=== PATIENT | male | born 1960 | race Caucasian/White ===

== ENCOUNTER 2023-02-08 11:26 | Day surgery (SDC) | payer OTHER ==
[~2023-02-08] VITALS: Ht 162.6 cm; Wt 79.8 kg
[2023-02-08] MEDS ORDERED: MIDAZOLAM 5 MG/5 ML VIAL ONE (12:56)
[2023-02-08] MEDS ORDERED: diphenhydrAMINE 50 MG/ML VIAL ONE (12:56)
[2023-02-08] MEDS ORDERED: fentaNYL citrate 0.05 MG/ML VIAL ONE (12:57)
[2023-02-08] MEDS ORDERED: LIDOCAINE 2% 100 MG/5 ML UJET TP ONE (12:57)
[2023-02-08] MEDS ORDERED: MIDAZOLAM 2 MG/2 ML VIAL IVP ONE (13:50)
[2023-02-08] MEDS ORDERED: FENTANYL C 0.075 MG/HR PATCH TD SCH (13:50)
[2023-02-08] MEDS ORDERED: fentaNYL citrate 0.05 MG/ML VIAL IVP ONE (14:55)
== END 2023-02-08 14:00 | disposition home or self-care (01) ==
LOC: MDS 11:26 → MMU 12:14 → MDS 14:00
PROVIDERS: ATTEND Internal Medicine Gastroenterology
DX: Z12.11 Encounter for screening for malignant neoplasm of colon (principal); K63.5 Polyp of colon; K57.30 Diverticulosis of large intestine without perforation or abscess without bleeding; E03.9 Hypothyroidism, unspecified; E11.9 Type 2 diabetes mellitus without complications; K21.9 Gastro-esophageal reflux disease without esophagitis; Z79.84 Long term (current) use of oral hypoglycemic drugs; Z79.899 Other long term (current) drug therapy; Z85.21 Personal history of malignant neoplasm of larynx
CPT/HCPCS: 45385; J2250; J3010; J1200